=== PATIENT | female | born 1985 | race African-American/Black ===

== ENCOUNTER 2017-08-21 10:28 | Emergency (ER) | payer OTHER ==
[2017-08-21 11:45] VITALS: BP 138/80
--- NOTE | 2017-08-21 12:57 | UC ---
Throat Pain/Nasal Mesfin HPI - HPI Summary HPI Summary: 32 year old female with sinus pressure. c/o of laryngitis that has been on/off, bi-lateral ear fullness, sinus congestion, coughing, body aches for the past 2 weeks. Denies fever. Still with sinus pressure. No cough or SOB. [ End ] - History of Current Complaint Chief Complaint: UCRespiratory Stated Complaint: SINUS Time Seen by Provider: 08/21/17 12:49 Hx Obtained From: Patient Hx Last Menstrual Period: 08/13/17 Onset/Duration: Gradual Onset - Allergies/Home Medications Allergies/Adverse Reactions: Allergies Allergy/AdvReac Type Severity Reaction Status Date / Time No Known Allergies Allergy Verified 08/21/17 11:45 Home Medications: Home Medications Cyanocobalamin [Vitamin B-12] 200 mcg PO DAILY 08/21/17 [History Confirmed 08/21] PMH/Surg Hx/FS Hx/Imm Hx Previously Healthy: Yes - Surgical History Surgical History: Yes Surgery Procedure, Year, and Place: 01/10 - Social History Occupation: Employed Full-time - [employer] Alcohol Use: Occasionally Substance Use Type: None Smoking Status (MU): Never Smoked Tobacco - Immunization History Most Recent Influenza Vaccination: 07/2017 Review of Systems ENT: Nasal Discharge, Sinus Congestion, Sinus Pain/Tenderness Respiratory: Cough Is Patient Immunocompromised?: No All Other Systems Reviewed And Are Negative: Yes Physical Exam Triage Information Reviewed: Yes Appearance: Well-Appearing, No Pain Distress, Well-Nourished Vital Signs: Initial Vital Signs Temp 97.6 F 08/21/17 11:40 Pulse 76 08/21/17 11:40 Resp 16 08/21/17 11:40 BP 138/80 08/21/17 11:40 Pulse Ox 99 08/21/17 11:40 Vital Signs Reviewed: Yes ENT Exam: Normal ENT: Positive: Normal ENT inspection, Pharynx normal, Nasal congestion, TM bulging - serous effusion, TM dull. Negative: Tonsillar swelling, Tonsillar exudate Neck exam: Normal Respiratory Exam: Normal Cardiovascular Exam: Normal Musculoskeletal Exam: Normal Neurological Exam: Normal Psychological Exam: Normal Skin Exam: Normal Throat Pain/Nasal Course/Dx - Course Course Of Treatment: Viral at this time. Start allergy med day and night and flonase in AM and Netti Pot in PM. If symptoms worsen or not improved over the next 3-4 days then may start the Augmentin. Aware of Se of meds. - Differential Dx/Diagnosis Differential Diagnosis/HQI/PQRI: Sinusitis Provider Diagnoses: Sinusitis Discharge - Discharge Plan Condition: Good Disposition: HOME Prescriptions: Amoxicillin/Clavulanate TAB* [Augmentin TAB 875*] 875 mg PO BID #20 tab Patient Education Materials: Sinusitis (ED) Referrals: No Primary Care Phys,NOPCP [Primary Care Provider] - 4 Days Additional Instructions: Viral at this time. Start allergy med day and night and flonase in AM and Netti Pot in PM. If symptoms worsen or not improved over the next 3-4 days then may start the Augmentin.
== END 2017-08-21 13:13 | disposition home or self-care (01) ==
LOC: UCCORT 10:28
DX: J32.9 Chronic sinusitis, unspecified (principal)
CPT/HCPCS: 99202; G0463

== ENCOUNTER 2020-01-11 19:36 | Emergency (ER) | payer BC, OTHER ==
[2020-01-11 20:18] VITALS: BP 128/65
[2020-01-11 20:53] LABS: Influenza A Molecular Negative (Negative); Influenza B Molecular Negative (Negative)
--- NOTE | 2020-01-11 21:03 | UC ---
FLU HPI - HPI Summary HPI Summary: 35-year-old female presents with 2 day history of mild nasal congestion, occasional dry nonproductive cough, and an episode of chills last evening. No recent travel. No contact with persons isolated 4 over diagnosed with COVID- 19. Denies fever, chills, ear pain, sore throat, chest pain, or shortness of breath. - History of Current Complaint Chief Complaint: UCGeneralIllness Stated Complaint: CONGESTION,COLD SWEATS Time Seen by Provider: 01/11/20 20:13 Hx Obtained From: Patient Hx Last Menstrual Period: 01/08/20 Pain Intensity: 0 - Allergy/Home Medications Allergies/Adverse Reactions: Allergies Allergy/AdvReac Type Severity Reaction Status Date / Time No Known Allergies Allergy Verified 01/11/20 20:18 Home Medications: Home Medications NK [No Home Medications Reported] 01/11/20 [History Confirmed 01/11/20] PMH/Surg Hx/FS Hx/Imm Hx Previously Healthy: Yes - Denies significant PMH - Surgical History Surgical History: Yes Surgery Procedure, Year, and Place: 01/10. gastric bypass-2018 - Family History Family History: Denies significant FMH - Social History Alcohol Use: Occasionally Substance Use Type: None Smoking Status (MU): Never Smoked Tobacco - Immunization History Most Recent Influenza Vaccination: 07/2017 Review of Systems All Other Systems Reviewed And Are Negative: Yes Constitutional: Negative: Fever, Chills Eyes: Negative: Drainage, Eye Redness ENT: Positive: Sore Throat, Nasal Discharge, Sinus Congestion. Negative: Ear Ache, Sinus Pain/Tenderness Respiratory: Positive: Cough. Negative: Shortness Of Breath Cardiovascular: Negative: Chest Pain Gastrointestinal: Negative: Abdominal Pain, Vomiting, Diarrhea, Nausea Genitourinary: Positive: Negative Musculoskeletal: Positive: Negative Neurological/Mental Status: Positive: Negative Is Patient Immunocompromised?: No Physical Exam - Summary Physical Exam Summary: GENERAL APPEARANCE: Well developed, well nourished, alert and cooperative, and appears to be in no acute distress. EYES: Conjunctiva clear. No drainage. EARS: External auditory canals and tympanic membranes clear, hearing grossly intact. NOSE: Mild nasal congestion. No nasal discharge. THROAT: Pharynx normal. No tonsilar inflammation, swelling, exudate, or lesions. Uvula midline. NECK: Neck supple, non-tender without lymphadenopathy. CARDIAC: Normal S1 and S2. No S3, S4 or murmurs. Rhythm is regular. There is no peripheral edema, cyanosis or pallor. Extremities are warm and well perfused. Capillary refill is less than 2 seconds. Peripheral pulses intact. LUNGS: Clear to auscultation without rales, rhonchi, wheezing or diminished breath sounds. Cough not observed. ABDOMEN: Positive bowel sounds. Soft, nondistended, nontender. No guarding or rebound. No masses or hepatosplenomegally. MUSKULOSKELETAL: ROM intact to all extremities. No joint erythema or tenderness. Normal muscular development. Normal gait. SKIN: Skin normal color, texture and turgor with no lesions or eruptions. Triage Information Reviewed: Yes Vital Signs: Initial Vital Signs Temp 99.0 F 01/11/20 20:13 Pulse 77 01/11/20 20:13 Resp 14 01/11/20 20:13 BP 128/65 01/11/20 20:13 Pulse Ox 99 01/11/20 20:13 Vital Signs Reviewed: Yes Flu Course/Dx - Course Course Of Treatment: 35-year-old female presents with 2 day history of mild nasal congestion, occasional dry nonproductive cough, and an episode of chills last evening. No recent travel. No contact with persons isolated 4 over diagnosed with COVID- 19. Denies fever, chills, ear pain, sore throat, chest pain, or shortness of breath. Afebrile. Vital signs stable. Patient had I'll nasal congestion without drainage, normal TMs, normal pharynx, no cervical lymphadenopathy, clear bilateral breath sounds, and otherwise unremarkable exam. Rapid flu test was negative. Reviewed results with the patient and I'm recommending symptomatic treatment for a viral upper respiratory infection. She is to follow -up with her primary care provider in 5-7 days if symptoms are not improving. Anticipatory guidance and warning symptoms were reviewed with the patient. Verbalizes understanding and agrees with plan of care. - Differential Dx/Diagnosis Differential Diagnosis/HQI/PQRI: Bronchitis, Influenza, Pneumonia, Upper Respiratory Infection Provider Diagnosis: Viral URI Discharge ED - Sign-Out/Discharge Documenting (check all that apply): Patient Departure All imaging exams completed and their final reports reviewed: No Studies - Discharge Plan Condition: Stable Disposition: HOME Patient Education Materials: Upper Respiratory Infection (ED) Forms: *Work Release Referrals: Oc Cohen MD [Primary Care Provider] - 5 Days Additional Instructions: Your history and exam are consistent with a viral upper respiratory infection. Viral infections do not respond to antibiotics and are limited to the treatment of symptoms. Viral infections typically run their course in 7-10 days. Drink plenty of fluids to avoid dehydration especially if you are running any fever. Use a saline rinse kit such as Neti Pot or NeilMed at least twice a day to help thin secretions and promote drainage of the sinuses. Use fluticasone (Flonase) nasal spray 2 sprays each nostril once daily. Take over the counter acetaminophen (Tylenol) or ibuprofen (Advil, Motrin) according to directions as needed for pain or fever. Use salt water gargles several times a day if you have a sore throat. You may also use Chloraseptic spray or Cepacol lonzenges according to directions which contain a numbing medication and can provide some temporary relief from your sore throat. Follow up with your primary care provider in 5-7 dyas if symptoms persist. Seek immediate medical attention in the emergency room if you have fever greater than 100.5 F despite taking acetaminophen or ibuprofen, have chest pain , difficulty breathing, are unable to swallow, or have any worsening of symptoms. - Billing Disposition and Condition Condition: STABLE Disposition: Home
== END 2020-01-11 21:15 | disposition home or self-care (01) ==
LOC: UCCORT 19:36
DX: J06.9 Acute upper respiratory infection, unspecified (principal)
CPT/HCPCS: 99211; G0463